=== PATIENT | female | born 1950 | race Caucasian/White ===

== ENCOUNTER → 2016-09-04 | Outpatient (CLI) | payer MEDICARE | END | disposition home or self-care (01) | LOC: CFH 13:57 | PROVIDERS: ATTEND Family Medicine | DX: Z13.820 Encounter for screening for osteoporosis (principal); M85.88 Other specified disorders of bone density and structure, other site; N95.9 Unspecified menopausal and perimenopausal disorder | CPT/HCPCS: 77080 ==

== ENCOUNTER 2016-10-31 19:38 | Emergency (ER) | payer MEDICARE ==
[~2016-10-31] VITALS: Ht 157.5 cm; Wt 56.2 kg
[2016-10-31] MEDS ORDERED: SODIUM CHLORIDE 0.9% 1,000ML IVBOLUS ONE (20:00)
[2016-10-31] MEDS ORDERED: SODIUM CHLORIDE FLUSH 10ML SYR IVF ONE (20:00)
[2016-10-31 20:06] LABS: HEMATOCRIT 41.5 % (34.6-47.8); HEMOGLOBIN 14.4 g/dL (11.7-16.4); WHITE BLOOD COUNT 4.4 x10^3/uL (3.4-10)
[2016-10-31] MEDS ORDERED: MECLIZINE CHEWABLE 25 MG TAB ONE (20:17)
[2016-10-31 20:19] LABS: ASPARTATE AMINO TRANSFERASE 20 U/L (15-37); BLOOD UREA NITROGEN 24 mg/dL (7-18)
[2016-10-31] MEDS ORDERED: MECLIZINE CHEWABLE 25 MG TAB PO ONE (20:30)
[2016-10-31 20:42] LABS: IS PT STATUS REG ER OR PRE ER? YES
[2016-10-31 21:46] VITALS: BP 152/71
== END 2016-10-31 21:49 | disposition home or self-care (01) ==
LOC: ED 21:43
DX: R51 Headache (principal); R42 Dizziness and giddiness
CPT/HCPCS: 36415; 70450; 80053; 84484; 85025; 93005; 99285

== ENCOUNTER 2018-05-07 14:16 | Inpatient (IN) | payer MEDICARE ==
[~2018-05-07] VITALS: Ht 157.5 cm; Wt 57.0 kg
--- NOTE | 2018-05-07 14:51 | NUR ---
PT IS SHAKING AND HAS TREMORS. UNABLE TO COMPLETE EKG. PLACED AMBIKA PAW UNDER BLANKET TO WARM PT
[2018-05-07 14:52] LABS: RAPID INFLUENZA A Negative (Negative); RAPID INFLUENZA B Negative (Negative)
[2018-05-07 14:53] LABS: BASOPHILS # (AUTO) 0.06 x10^3/uL (0-0.1); BASOPHILS % (AUTO) 1 % (0-1); EOSINOPHILS % (AUTO) 0 % (1-7); LYMPHOCYTES # (AUTO) 0.77 x10^3/uL (1-3.4); LYMPHOCYTES % (AUTO) 12 % (22-44); MD NO; MEAN CORPUSCULAR HEMOGLOBIN 32.6 pg (27.0-34.8); MEAN CORPUSCULAR HGB CONC 34.9 g/dL (32.4-35.8); MEAN CORPUSCULAR VOLUME 93.4 fL (80-100); MEAN PLATELET VOLUME 8.4 fL (7.4-10.4); MONOCYTES # (AUTO) 0.34 x10^3/uL (0.2-0.8); MONOCYTES % (AUTO) 5 % (2-9); NEUTROPHILS % (AUTO) 82 % (42-75); PLATELET COUNT 222 x10^3/uL (130-400); RED BLOOD COUNT 4.17 x10^6/uL (3.82-5.3); RED CELL DISTRIBUTION WIDTH 12.4 % (9.6-15.2)
[2018-05-07] MEDS ORDERED: ACETAMINOPHEN 500 MG TABLET ONE ×2 (15:20)
[2018-05-07] MEDS ORDERED: SODIUM CHLORIDE 0.9% 1,000ML IVBOLUS ONE ×2 (15:30→16:30)
[2018-05-07] MEDS ORDERED: ACETAMINOPHEN 500 MG TABLET PO ONE (15:30)
--- NOTE | 2018-05-07 15:37 | NUR ---
PT 88 PERCENT ON RA. PLACED ON 2L NC WITH 91 PERCENT NOTED
[2018-05-07] MEDS ORDERED: CEFTRIAXONE PMX 1GM/50ML 50 ML ONE (16:29)
[2018-05-07] MEDS ORDERED: IBUPROFEN 800 MG TABLET ONE (16:29)
[2018-05-07] MEDS ORDERED: CEFTRIAXONE PMX 1GM/50ML 50 ML IV ONE (16:30)
[2018-05-07] MEDS ORDERED: VANCOMYCIN PER PHARMACY MC PRN (16:30)
[2018-05-07] MEDS ORDERED: IBUPROFEN 200 MG TABLET PO ONE (16:30)
[2018-05-07 16:40] LABS: ALBUMIN 3.1 g/dL (3.4-5.0); ANION GAP 10 mmol/L (5-15); CALCIUM 9.5 mg/dL (8.5-10.1); CHLORIDE 103 mmol/L (98-107); CREATININE 1.02 mg/dL (0.55-1.02)
--- NOTE | 2018-05-07 16:47 | NUR ---
REPEAT TEMP 103. MD AWARE. ORDERS RECEIVED FOR MOTRIN. ADDITIONALLY FLUID BOLUS INFUSING AND ANTIBIOTIC STARTED. BLOOD CULTURE BAND NOTED ON PT.
[2018-05-07] MEDS ORDERED: VANCOMYCIN PMX 1GM/200ML 200 ML IV ONE (17:00)
--- NOTE | 2018-05-07 17:39 | NUR ---
VS UPDATED. PT NO LONGER SHAKING, FEVER BROKE. AWARE OF PENDING ADMISSION.
--- NOTE | 2018-05-07 18:03 | NUR ---
REPORT TO CRISTOPHER DAIGLE. HOSPITALIST AT BEDSIDE.
[2018-05-07 18:25] LABS: HEMOGLOBIN A1C 5.5 % (4.2-6.3)
[2018-05-07] MEDS ORDERED: MORPHINE SULFATE 4 MG/ML, 1ML IVPush PRN (18:30)
[2018-05-07] MEDS ORDERED: ENALAPRILAT 1.25 MG/ML, 2ML IVPush PRN (18:30)
[2018-05-07] MEDS ORDERED: AZITHROMYCIN 500 MG in SODIUM CHLORIDE 0.9% 250 ML IV SCH (18:30)
[2018-05-07] MEDS ORDERED: ACETAMINOPHEN 325 MG TABLET PO PRN ×2 (18:30)
[2018-05-07] MEDS ORDERED: ENOXAPARIN 40 MG/0.4 ML SQ SCH (18:30)
[2018-05-07] MEDS ORDERED: morphine SULFATE 10 MG/ML, 1ML IVPush PRN (18:30)
[2018-05-07] MEDS ORDERED: ONDANSETRON 2MG/ML, 2ML IVPush PRN ×2 (18:30)
[2018-05-07] MEDS ORDERED: IBUPROFEN 600 MG TABLET PO PRN (18:30)
[2018-05-07] MEDS ORDERED: TEMAZEPAM 15 MG CAPSULE PO PRN (18:30)
[2018-05-07 19:20] VITALS: BP 96/56
[2018-05-07] MEDS: SODIUM CHLORIDE 0.9% 1,000 ML IV SCH ×2 (20:40)
[2018-05-08 00:03] VITALS: BP 132/74
[2018-05-08] MEDS: SODIUM CHLORIDE 0.9% 1,000 ML IV SCH ×3 (04:28→10:30)
[2018-05-08] MEDS ORDERED: CEFTRIAXONE PMX 2GM/50ML 50 ML IV SCH (04:30)
[2018-05-08 04:52] LABS: MEAN CORPUSCULAR HEMOGLOBIN 31.9 pg (27.0-34.8); MEAN CORPUSCULAR HGB CONC 33.9 g/dL (32.4-35.8); MEAN CORPUSCULAR VOLUME 94.2 fL (80-100); MEAN PLATELET VOLUME 8.1 fL (7.4-10.4); PLATELET COUNT 202 x10^3/uL (130-400); RED BLOOD COUNT 3.36 x10^6/uL (3.82-5.3); RED CELL DISTRIBUTION WIDTH 12.3 % (9.6-15.2)
[2018-05-08 04:55] LABS: ALANINE AMINOTRANSFERASE 13 U/L (12-78); ALBUMIN 2.2 g/dL (3.4-5.0); ANION GAP 8 mmol/L (5-15); CALCIUM 7.6 mg/dL (8.5-10.1); CHLORIDE 113 mmol/L (98-107); CREATININE 0.66 mg/dL (0.55-1.02)
[2018-05-08 04:57] LABS: ALKALINE PHOSPHATASE 45 U/L (45-117); BILIRUBIN,TOTAL 1.4 mg/dL (0.2-1.0); TOTAL PROTEIN 5.4 g/dL (6.4-8.2)
[2018-05-08 05:53] LABS: BASOPHILS % (AUTO) 0 % (0-1); EOSINOPHILS % (AUTO) 0 % (1-7); LYMPHOCYTES # (AUTO) 0.32 x10^3/uL (1-3.4); LYMPHOCYTES % (AUTO) 7 % (22-44); MD SCAN; MONOCYTES # (AUTO) 0.26 x10^3/uL (0.2-0.8); MONOCYTES % (AUTO) 6 % (2-9); NEUTROPHILS # (AUTO) 4.03 x10^3/uL (1.8-6.8); NEUTROPHILS % (AUTO) 87 % (42-75)
[2018-05-08 08:00] VITALS: BP 115/74
== END 2018-05-08 12:45 | disposition left against medical advice (07) | DRG 871 ==
LOC: ED 17:13 → EDIP 17:14 → SUATTDRO 17:49 → ED 17:55 → 3NW 18:00 → ED 18:00 → UNDODISIN 05-08 12:21
PROVIDERS: ADMIT Internal Medicine; ATTEND Internal Medicine
DX: A41.9 Sepsis, unspecified organism (principal); J15.9 Unspecified bacterial pneumonia; J96.01 Acute respiratory failure with hypoxia; R73.9 Hyperglycemia, unspecified; Z53.21 Procedure and treatment not carried out due to patient leaving prior to being seen by health care provider; R65.20 Severe sepsis without septic shock; Z88.0 Allergy status to penicillin
CPT/HCPCS: 36415; 71045; 80048; 80053; 82040; 83036; 83605; 83735; 84100; 85025; 87040; 87400; 93005; 96361; 96365; 96375; 99291; G0378; J0456; J0696; J1650; J3370; J7030; J7050